=== PATIENT | female | born 2000 | race Caucasian/White ===

== ENCOUNTER 2018-09-28 06:40 | Outpatient (CLI) | payer OTHER ==
--- NOTE | 2018-09-28 07:48 | ULT ---
SONOGRAM ABDOMEN COMPLETE: HISTORY: Upper abdomen pain. FINDINGS: Gallbladder has a normal appearance without evidence of stones. The common duct is 0.2 cm. Liver is unremarkable without focal mass or intrahepatic biliary dilatation. No free fluid. The spleen, kid neys, and visualized portions of the abdominal aorta, IVC, and pancreas have a normal appearance. IMPRESSION: Normal abdominal sonogram. POS: [facility]
--- NOTE | 2018-09-28 08:50 | ULT ---
PELVIC SONOGRAM TRANSABDOMINAL AND TRANSVAGINAL IMAGING WITH DUPLEX EVALUATION: History: Pelvic pain. FINDINGS: Urinary bladder is incompletely distended. No free fluid. Uterus has a heterogeneous echotexture and is 7.3 cm. Endometrium 1.1 cm. No free fluid. The right ovary is 2.5 cm and has a normal appearance with good color and spectral doppler flow. Left ovary not visualized. No solid or cystic adnexal masses. IMPRESSION: No significant abnormalities are demonstrated. POS: [facility]
== END 2018-09-28 06:41 | disposition home or self-care (01) ==
LOC: BICULT 06:40
PROVIDERS: ATTEND Family Medicine
DX: R10.84 Generalized abdominal pain (principal); N76.0 Acute vaginitis
CPT/HCPCS: 76700; 76856

== ENCOUNTER 2018-11-29 09:14 | Outpatient (CLI) | payer OTHER ==
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
== END 2018-11-29 09:15 | disposition home or self-care (01) ==
LOC: BICRAD 09:14
PROVIDERS: ATTEND Family Medicine
DX: M54.2 Cervicalgia (principal); R07.89 Other chest pain; V89.2XXA Person injured in unspecified motor-vehicle accident, traffic, initial encounter
CPT/HCPCS: 71046; 72040

== ENCOUNTER 2021-07-31 16:22 | Outpatient (CLI) | payer BC, OTHER | END 2021-07-31 16:23 | disposition home or self-care (01) | LOC: BICRAD 16:22 | PROVIDERS: ATTEND Family Medicine | DX: M53.3 Sacrococcygeal disorders, not elsewhere classified (principal); M85.88 Other specified disorders of bone density and structure, other site | CPT/HCPCS: 72220 ==